=== PATIENT | male | born 1980 | race African-American/Black ===

== ENCOUNTER 2016-05-14 21:09 | Emergency (ER) | payer OTHER ==
[~2016-05-14] VITALS: Ht 177.8 cm; Wt 65.0 kg
[~2016-05-14 21:09] MED LIST: NAPR-571 PO; ROBA750T3 PO
[2016-05-14 21:38] VITALS: BP 158/78; PULSE 94; RESP 20; TEMP 98.3; O2SAT 97
[2016-05-14 23:08] LABS: AUTOMATED NEUTROPHIL # 3.8 TH/MM3 (1.8-7.7); BASOPHIL % 0.3 % (0.0-2.0); EOSINOPHIL % 0.3 % (0.0-4.0); HEMATOCRIT 45.4 % (39.0-51.0); HEMO FLAGS DIFF FINAL; LYMPH % 37.3 % (9.0-44.0); LYMPHOCYTE # 2.7 TH/MM3 (1.0-4.8); MEAN CELL VOLUME 85.7 FL (80.0-100.0); MEAN CORPUSCULAR HEMOGLOBIN 28.5 PG (27.0-34.0); MEAN CORPUSCULAR HGB CONC 33.3 % (32.0-36.0); MONO % 8.6 % (0.0-8.0); NEUT % 53.5 % (16.0-70.0); PLATELET COUNT 237 TH/MM3 (150-450); RED CELL DISTRIBUTION WIDTH 13.9 % (11.6-17.2); WHITE BLOOD COUNT 7.1 TH/MM3 (4.0-11.0)
[2016-05-14 23:09] VITALS: BP 144/99; PULSE 91; RESP 16; TEMP 99.2; O2SAT 100
[2016-05-14] MEDS ORDERED: NAPR250T PO (23:17)
[2016-05-14] MEDS ORDERED: ROBA750T PO (23:17)
[2016-05-14 23:21] LABS: AMPHETAMINE, URINE NEG (NEG); BARBITURATES, URINE NEG (NEG); COCAINE, URINE POS (NEG)
[2016-05-14 23:23] LABS: ANION GAP 11 MEQ/L (5-15)
[2016-05-14 23:30] LABS: ACETAMINOPHEN LESS THAN 2.0 MCG/ML (10.0-30.0); ALKALINE PHOSPHATASE 74 U/L (45-117); ALT (GPT) 40 U/L (12-78); AST (GOT) 38 U/L (15-37); BICARBONATE 25.1 MEQ/L (21.0-32.0); BLOOD UREA NITROGEN 14 MG/DL (7-18); CHLORIDE 102 MEQ/L (98-107); GLOMERULAR FILTRATION RATE 78 ML/MIN (>89); POTASSIUM 3.8 MEQ/L (3.5-5.1); SODIUM (NA) 138 MEQ/L (136-145); TOTAL BILIRUBIN ADULT 0.4 MG/DL (0.2-1.0)
--- NOTE | 2016-05-14 23:39 | PD ---
HPI Chief Complaint: Psychiatric Symptoms Time Seen by Provider: 21:49 Travel History International Travel<30 days: No Contact w/Intl Traveler<30days: No Traveled to known affect area: No History of Present Illness HPI 35yo M with PMH of depression and polysubstance abuse presents under [place] for suicidal ideation. Pt states he did not take any pills or have a solid plan. Pt denies any complaints or falls but admits to drug use. Denies any IVDA. No signs of trauma. PFSH Past Medical History Asthma: Yes Bipolar Disorder: Yes Diminished Hearing: No Schizophrenia: Yes Tetanus Vaccination: Unknown Influenza Vaccination: No Social History Alcohol Use: Yes (OCCASIONALLY ) Tobacco Use: Yes (1PPD) Substance Use: Yes (MARAJUANA) Allergies-Medications (Allergen,Severity, Reaction): Coded Allergies: No Known Allergies (Verified , 12/14/14) Reported Meds & Prescriptions Reported Meds & Active Scripts Active Reported Naproxen 250 Mg Tab 250 Mg PO TID Robaxin (Methocarbamol) 750 Mg Tab 750 Mg PO TID Review of Systems Except as stated in HPI: all other systems reviewed are Neg Physical Exam Narrative GENERAL: 35yo M not in distress. SKIN: Warm and dry. HEAD: Atraumatic. Normocephalic. EYES: Pupils equal and round. No scleral icterus. No injection or drainage. ENT: No nasal bleeding or discharge. Mucous membranes pink and moist. NECK: Trachea midline. No JVD. CARDIOVASCULAR: Regular rate and rhythm. No murmur appreciated. RESPIRATORY: No accessory muscle use. Clear to auscultation. Breath sounds equal bilaterally. GASTROINTESTINAL: Abdomen soft, non-tender, nondistended. No rebound tenderness or guarding. MUSCULOSKELETAL: No obvious deformities. No clubbing. No cyanosis. No edema. NEUROLOGICAL: Awake and alert. No obvious cranial nerve deficits. Motor grossly within normal limits. Normal speech. Data Data Last Documented VS Vital Signs Date Time Temp Pulse Resp B/P Pulse Ox O2 Delivery O2 Flow Rate FiO2 05/15/16 00:00 95 16 130/95 100 Room Air 05/14/16 23:09 99.2 Orders Complete Blood Count With Diff (05/14/16 22:32) Drug Screen, Random Urine (05/14/16 22:32) Psych Screen (05/14/16 22:32) Alcohol (Ethanol) (05/14/16 22:32) Tylenol (Acetaminophen) (05/14/16 22:32) Salicylates (Aspirin) (05/14/16 22:32) Comprehensive Metabolic Panel (05/14/16 22:32) Electrocardiogram (05/14/16 ) Labs Laboratory Tests Test 05/14/16 05/14/16 22:00 23:05 White Blood Count 7.1 TH/MM3 Red Blood Count 5.30 MIL/MM3 Hemoglobin 15.1 GM/DL Hematocrit 45.4 % Mean Corpuscular Volume 85.7 FL Mean Corpuscular Hemoglobin 28.5 PG Mean Corpuscular Hemoglobin 33.3 % Concent Red Cell Distribution Width 13.9 % Platelet Count 237 TH/MM3 Mean Platelet Volume 9.7 FL Neutrophils (%) (Auto) 53.5 % Lymphocytes (%) (Auto) 37.3 % Monocytes (%) (Auto) 8.6 % Eosinophils (%) (Auto) 0.3 % Basophils (%) (Auto) 0.3 % Neutrophils # (Auto) 3.8 TH/MM3 Lymphocytes # (Auto) 2.7 TH/MM3 Monocytes # (Auto) 0.6 TH/MM3 Eosinophils # (Auto) 0.0 TH/MM3 Basophils # (Auto) 0.0 TH/MM3 CBC Comment DIFF FINAL Differential Comment Sodium Level 138 MEQ/L Potassium Level 3.8 MEQ/L Chloride Level 102 MEQ/L Carbon Dioxide Level 25.1 MEQ/L Anion Gap 11 MEQ/L Blood Urea Nitrogen 14 MG/DL Creatinine 1.26 MG/DL Estimat Glomerular Filtration 78 ML/MIN Rate Random Glucose 81 MG/DL Calcium Level 8.8 MG/DL Total Bilirubin 0.4 MG/DL Aspartate Amino Transf 38 U/L (AST/SGOT) Alanine Aminotransferase 40 U/L (ALT/SGPT) Alkaline Phosphatase 74 U/L Total Protein 8.7 GM/DL Albumin 4.6 GM/DL Salicylates Level 4.1 MG/DL Acetaminophen Level LESS THAN 2.0 MCG/ML Ethyl Alcohol Level 160 MG/DL Urine Opiates Screen NEG Urine Barbiturates Screen NEG Urine Amphetamines Screen NEG Urine Benzodiazepines Screen NEG Urine Cocaine Screen POS Urine Cannabinoids Screen POS MDM Medical Decision Making Medical Screen Exam Complete: Yes Emergency Medical Condition: Yes Interpretation(s) EKG: NSR 77bpm. Early repolarization. Normal axis. QTc 397ms. Narrow QRS. Differential Diagnosis Depression vs. drug induced mood disorder Narrative Course 35yo M with depression here with suicidal ideation. Labs reviewed, no leukocytosis. Mild AST elevation. Utox positive for cocaine, cannabinoids. Blood alcohol 160. Salicylate 4.1. Pt is medically clear for psych evaluation. Diagnosis Primary Impression: Suicidal ideation Ernestina Lorenzo DO May 14, 2016 23:39
[2016-05-15] VITALS: BP 130/95; PULSE 95; RESP 16; O2SAT 100
[2016-05-15 05:19] VITALS: BP 120/61; PULSE 79; RESP 18
[2016-05-15 11:57] VITALS: BP 122/69; PULSE 63; RESP 18; O2SAT 98
--- NOTE | 2016-05-15 14:59 | PD.CONS ---
Provisional Diagnosis Admission Date [place]. 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 Today a psychiatric evaluation patient is clinically sober, patient is states that he doesn't understand how he could be so drunk and intoxicated to the point that he became suicidal. He says that he doesn't know what he was doing or he was saying. At this moment the patient denies depressive symptoms, denies anxiety, denies perceptual disturbances, denies merritt, denies psychosis. He denies suicidal or homicidal ideation. He denies visual and auditory hallucinations.. Patient is fully oriented 3, coherent, logical, no paranoia or delusion observed. Patient reports the use of alcohol, cocaine and marijuana just occasionally. Review of Systems Constitutional: DENIES: Diaphoretic episodes, Fatigue, Fever, Weight gain, Weight loss, Chills, Dizziness, Change in appetite, Night Sweats Endocrine: DENIES: Heat/cold intolerance, Polydipsia, Polyuria, Polyphagia Eyes: DENIES: Blurred vision, Diplopia, Eye inflammation, Eye pain, Vision loss , Photosensitivity, Double Vision Ears, nose, mouth, throat: DENIES: Tinnitus, Hearing loss, Vertigo, Nasal discharge, Oral lesions, Throat pain, Hoarseness, Ear Pain, Running Nose, Epistaxis, Sinus Pain, Toothache, Odynophagia Respiratory: DENIES: Apneas, Cough, Snoring, Wheezing, Hemoptysis, Sputum production, Shortness of breath Cardiovascular: DENIES: Chest pain, Palpitations, Syncope, Dyspnea on Exertion , PND, Lower Extremity Edema, Orthopnea, Claudication Gastrointestinal: DENIES: Abdominal pain, Black stools, Bloody stools, Constipation, Diarrhea, Nausea, Vomiting, Difficulty Swallowing, Anorexia Musculoskeletal: DENIES: Joint pain, Muscle aches, Stiffness, Joint Swelling, Back pain, Neck pain Integumentary: DENIES: Abnormal pigmentation, Nail changes, Pruritus, Rash Hematologic/lymphatic: DENIES: Bruising, Lymphadenopathy Immunologic/allergic: DENIES: Eczema, Urticaria Neurologic: DENIES: Abnormal gait, Headache, Localized weakness, Paresthesias, Seizures, Speech Problems, Tremor, Poor Balance Psychiatric: DENIES: Anxiety, Confusion, Mood changes, Depression, Hallucinations, Agitation, Suicidal Ideation, Homicidal Ideation, Delusions Past Family Social History Coded Allergies: No Known Allergies (Verified , 12/14/14) Reported Medications Naproxen 250 Mg [id number] Mg PO TID #60 TAB Ref 0 05/14/16 Methocarbamol (Robaxin)750 Mg [id number] Mg PO TID Ref 0 05/14/16 Physical Exam Vital Signs Vital Signs Date Time Temp Pulse Resp B/P Pulse Ox O2 Delivery O2 Flow Rate FiO2 05/15/16 11:57 63 18 122/69 98 Room Air 05/14/16 23:09 99.2 Mental Status Examination Speech: Unremarkable Orientation: x3 Memory: Unremarkable Thought Process: Logical Thought Content: Unremarkable Hallucination Type: None Attention and Concentration: Good Suicidal Ideation: No Previous Suicide Attempts: No Homicidal Ideation: No Previous Homicide Attempts: No Judgement: WNL Affect: Good Mood: Appropriate Assessment & Plan Problem List: (1) Substance induced mood disorder Assessment & Plan: At the moment of this evaluation the patient does not report any symptoms of depression, anxiety, merritt or psychosis. Patient denies suicidal or homicidal ideation. Patient is now clinically sober, reports good mood, he is future oriented, logical and coherent. Yesterday's suicidal statement and erratic behavior could be secondary to alcohol, cocaine and cannabis intoxication. Patient does not meet criteria for psychiatric admission at this moment. Support, motivation psycho education provided. He will be discharged back to community. ICD Code: F19.94 Assessment & Plan Estimated LOS: Enrique Samano MD May 15, 2016 14:59
[2016-05-15 15:12] VITALS: BP 122/69; PULSE 63; RESP 18; O2SAT 98
--- NOTE | 2016-05-15 23:45 | EKG ---
Date Performed: 05/15/2016 Time Performed: 01:17:07 PTAGE: 35 years EKG: Sinus rhythm ST ELEVATION, PROBABLY EARLY REPOLARIZATION BORDERLINE ECG PREVIOUS TRACING : 02/23/2013 13.47 DOCTOR: Alex Banuelos Interpretating Date/Time 05/15/2016 23:41:23
== END 2016-05-15 18:53 | disposition home or self-care (01) ==
LOC: NEDAMB 21:09 → NEPJ 05-15 18:53
DX: F19.14 Other psychoactive substance abuse with psychoactive substance-induced mood disorder (principal); R94.31 Abnormal electrocardiogram [ECG] [EKG]; J45.909 Unspecified asthma, uncomplicated; F31.9 Bipolar disorder, unspecified; F20.9 Schizophrenia, unspecified; F14.10 Cocaine abuse, uncomplicated; F10.10 Alcohol abuse, uncomplicated; F13.10 Sedative, hypnotic or anxiolytic abuse, uncomplicated; F17.210 Nicotine dependence, cigarettes, uncomplicated
CPT/HCPCS: 80053; 80307; 80320; 80329; 85025; 93005; G0480

== ENCOUNTER 2016-10-01 13:14 | Inpatient (IN) | payer OTHER ==
[~2016-10-01] VITALS: Ht 175.3 cm; Wt 67.5 kg
[2016-10-01] VITALS (10 sets, daily range): BP systolic 100–170; BP diastolic 55–93; PULSE 57–105; RESP 14–24; TEMP 97.3–98.7; O2SAT 96–99
[~2016-10-01 13:14] MED LIST changes: -NAPR-571 PO; +NAPR250T PO; +ROBA750T PO; -ROBA750T3 PO
--- NOTE | 2016-10-01 13:19 | PD ---
HPI Chief Complaint: hanging Time Seen by Provider: 13:19 Travel History International Travel<30 days: No Contact w/Intl Traveler<30days: No Traveled to known affect area: No History of Present Illness HPI 35-year-old male was brought in from the emergency room with history of suicide attempt by hanging himself from the ceiling with a rope. His and child found him soon after the attempt. As per the police and the paramedics he couldn't have been hanging for more than a minute. Police was called and they cut him loose. He immediately started to get agitated and combative. He ran out into the street and that's when paramedics arrived and together with the police but in the ambulance. As per the paramedics he was constantly chanting biblical verses in the ambulance on his right here and was trying to grab anything he could find in the back of the ambulance and put it in his mouth. He received 4 mg of Ativan on route in an attempt to calm him down. Currently patient is uncommunicative given his psychotic self. The police justice told me that he has a warrant to be arrested. He is hypertensive and tachycardic. 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 [facility] Past Medical History Narrative Medical List of his past medical, surgical, social and family history is reviewed from the nursing note. Asthma: Yes Bipolar Disorder: Yes Diminished Hearing: No Schizophrenia: Yes Social History Alcohol Use: Yes (OCCASIONALLY ) Tobacco Use: Yes (1PPD) Substance Use: Yes (MARAJUANA, ALCOHOL, COCAINE) Allergies-Medications (Allergen,Severity, Reaction): Coded Allergies: No Known Allergies (Verified , 10/01/16) Comments No known drug allergies. Reported Meds & Prescriptions Reported Meds & Active Scripts Active Narrative Medication List of his home medications reviewed from the nursing note. Review of Systems Except as stated in HPI: all other systems reviewed are Neg Physical Exam Narrative GENERAL: Awake, alert, combative, aggressive, unable to communicate with him SKIN: Focused skin assessment warm/dry. HEAD: Atraumatic. Normocephalic. EYES: Pupils equal and round. No scleral icterus. No injection or drainage. ENT: No nasal bleeding or discharge. Mucous membranes pink and moist. NECK: Trachea midline. No JVD. CARDIOVASCULAR: Regular rate and rhythm. No murmur appreciated. RESPIRATORY: No accessory muscle use. Clear to auscultation. Breath sounds equal bilaterally. GASTROINTESTINAL: Abdomen soft, non-tender, nondistended. Hepatic and splenic margins not palpable. MUSCULOSKELETAL: No obvious deformities. No clubbing. No cyanosis. No edema. NEUROLOGICAL: Awake and alert. No obvious cranial nerve deficits. Motor grossly within normal limits. Normal speech. PSYCHIATRIC: Combative, aggressive, poor insight and judgment Data Data Last Documented VS Vital Signs Date Time Temp Pulse Resp B/P Pulse Ox O2 Delivery O2 Flow Rate FiO2 10/01/16 16:00 80 14 168/93 97 Room Air 10/01/16 13:20 98.7 Orders Complete Blood Count With Diff (10/01/16 13:20) Comprehensive Metabolic Panel (10/01/16 13:20) Haloperidol Inj (Haldol Inj) (10/01/16 13:30) Lorazepam Inj (Ativan Inj) (10/01/16 13:30) Drug Screen, Random Urine (10/01/16 13:20) Diphenhydramine Inj (Benadryl Inj) (10/01/16 13:30) Restraints Violent (10/01/16 13:21) Salicylates (Aspirin) (10/01/16 13:27) Tylenol (Acetaminophen) (10/01/16 13:27) Special Diet Instructions (10/01/16 14:21) Psychiatric Precautions-Hbs (10/01/16 14:21) Lactic Acid (10/01/16 14:35) Arterial Blood Gas (Abg) (10/01/16 ) Alcohol (Ethanol) (10/01/16 14:35) Creatine Kinase (Cpk) (10/01/16 14:35) Sodium Chlor 0.9% 1000 Ml Inj (Ns 1000 M (10/01/16 15:00) Sodium Chlor 0.9% 1000 Ml Inj (Ns 1000 M (10/01/16 15:00) Ct Brain W/O Iv Contrast(Rout) (10/01/16 ) Ct Cerv Spine W/O Contrast (10/01/16 ) CKMB (10/01/16 13:50) CKMB% (10/01/16 13:50) Sodium Chlor 0.9% 1000 Ml Inj (Ns 1000 M (10/01/16 16:00) Sodium Bicarbonate 8.4% Inj (Sodium Bica (10/01/16 16:00) Admit Order (Ed Use Only) (10/01/16 15:59) Admit To Inpatient (10/01/16 ) Code Status (10/01/16 15:56) Vital Signs (Adult) POLLY.Q1H (10/01/16 15:56) Activity Bed Rest (10/01/16 15:56) ^ Elevate Head Of Bed (10/01/16 15:56) Activity Oob With Assistance (10/01/16 15:56) Neuro Checks . ORDERED (10/01/16 15:56) Pantoprazole Inj (Protonix Inj) (10/01/16 16:00) Albuterol-Ipratropium Neb (Duoneb Neb) (10/01/16 16:00) Ipratropium Neb (Atrovent Neb) (10/01/16 16:00) Complete Blood Count With Diff (10/02/16 04:00) Comprehensive Metabolic Panel (10/02/16 04:00) Magnesium (Mg) (10/02/16 04:00) Phosphorus (Po4) (10/02/16 04:00) Ladle Puller / Telemetry POLLY.Q8H (10/01/16 15:56) Scd Bilateral/Knee High POLLY.BID (10/01/16 15:56) ^ Initiate Protocol (10/01/16 15:56) ^ Instruction (10/01/16 15:56) [facility] (10/01/16 16:00) Chlorhexidine 2% Cloth (Chlorhexidine 2% (10/02/16 04:00) Chlorhexidine 2% Cloth (Chlorhexidine 2% (10/01/16 16:00) Mrsa Pcr Surveillance (10/01/16 15:56) Inpatient Certification (10/01/16 ) Consult Psychiatry (10/01/16 ) Sodium Bicarbonate 8.4% Inj (Sodium Bica (10/01/16 16:00) Dext 5%-Nacl 0.9% 1000 Ml Inj (D5w-Ns 10 (10/01/16 16:00) Lactic Acid (10/01/16 19:00) Basic Metabolic Panel (Bmp) (10/01/16 19:00) Labs Laboratory Tests Test 5/10/01/16 10/01/16 13:50 14:45 15:36 White Blood Count 6.0 TH/MM3 Red Blood Count 4.94 MIL/MM3 Hemoglobin 14.5 GM/DL Hematocrit 42.4 % Mean Corpuscular Volume 85.9 FL Mean Corpuscular Hemoglobin 29.3 PG Mean Corpuscular Hemoglobin 34.1 % Concent Red Cell Distribution Width 14.0 % Platelet Count 198 TH/MM3 Mean Platelet Volume 9.2 FL Neutrophils (%) (Auto) 67.2 % Lymphocytes (%) (Auto) 23.8 % Monocytes (%) (Auto) 8.5 % Eosinophils (%) (Auto) 0.1 % Basophils (%) (Auto) 0.4 % Neutrophils # (Auto) 4.0 TH/MM3 Lymphocytes # (Auto) 1.4 TH/MM3 Monocytes # (Auto) 0.5 TH/MM3 Eosinophils # (Auto) 0.0 TH/MM3 Basophils # (Auto) 0.0 TH/MM3 CBC Comment DIFF FINAL Differential Comment Sodium Level 137 MEQ/L Potassium Level 3.5 MEQ/L Chloride Level 101 MEQ/L Carbon Dioxide Level 14.7 MEQ/L Anion Gap 21 MEQ/L Blood Urea Nitrogen 9 MG/DL Creatinine 1.20 MG/DL Estimat Glomerular Filtration 83 ML/MIN Rate Random Glucose 79 MG/DL Calcium Level 9.2 MG/DL Total Bilirubin 0.3 MG/DL Aspartate Amino Transf 26 U/L (AST/SGOT) Alanine Aminotransferase 27 U/L (ALT/SGPT) Alkaline Phosphatase 63 U/L Total Creatine Kinase 482 U/L Creatine Kinase MB 1.4 NG/ML Creatine Kinase MB % 0.3 % Total Protein 7.5 GM/DL Albumin 4.2 GM/DL Salicylates Level 4.9 MG/DL Acetaminophen Level LESS THAN 2.0 MCG/ML Ethyl Alcohol Level 53 MG/DL Lactic Acid Level 6.1 mmol/L Blood Gas Puncture Site LT BRACHIAL Blood Gas Patient Temperature 98.6 Blood Gas HCO3 18 mmol/L Blood Gas Base Excess -6.2 mmol/L Blood Gas Oxygen Saturation 93 % Arterial Blood pH 7.35 Arterial Blood Partial 35 mmHg Pressure CO2 Arterial Blood Partial 102 mmHG Pressure O2 Arterial Blood Oxygen Content 17.6 Vol % Arterial Blood 4.2 % Carboxyhemoglobin Arterial Blood Methemoglobin 0.7 % Blood Gas Hemoglobin 13.4 G/DL Blood Gas Inspired Oxygen 21 % MDM Medical Decision Making Medical Screen Exam Complete: Yes Emergency Medical Condition: Yes Medical Record Reviewed: Yes Differential Diagnosis Suicide attempt, attempted hanging Narrative Course 2:07 PM I ordered Haldol, Ativan and Benadryl IM in order to chemically restrain him. Awaiting for the blood test result to medically clear him. Once patient is medically cleared he will go back with the police to the custody. 3:02 PM blood test results are slowly coming back. Patient's bicarb is low and anion gap is high. I added lactic acid which is pending. CBC is slightly elevated which would be explained by his aggressive and combative behavior at required physical restraint. I have ordered 2 L of IV fluid bolus which she is getting. Alcohol level is slightly high. I've ordered a CT scan of his head and neck as well. CT scan pending. 3:[address] scan of the head is negative. Patient has significant lactic acidosis. I discussed the case with the alley worker who has accepted the case and wants a third liter of IV fluid bolus along with 2 ampules of bicarbonate to be given to the patient. Critical Care Narrative Aggregate critical care time was 60 minutes. Time to perform other separately billable procedures was not included in the critical care time. My time did not include minutes spent treating any other patients simultaneously or on activities that did not directly contribute to the patient's treatment. The services I provided to this patient were to treat and/or prevent clinically significant deterioration that could result in: Psychosis, attempted hanging, lactic acidosis, metabolic acidosis I provided critical care services requiring my management, as noted below: Chart data review, documentation time, medication orders and management, vital sign assessments/reviewing monitor data, ordering and reviewing lab tests, ordering and interpreting/reviewing x-rays and diagnostic studies, care of the patient and discussion of the patient with the admitting physicians. Procedures EKG Prior to Arrival: No Physician Communication Physician Communication Dr. 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
[2016-10-01] MEDS ORDERED: HALOPERIDOL LACTATE 5 MG/ML AMP IM ONE (13:30)
[2016-10-01] MEDS ORDERED: LORazepam 2 MG/ML VIAL IM ONE (13:30)
[2016-10-01] MEDS ORDERED: diphenhydrAMINE HCL 50 MG/ML VIAL IM ONE (13:30)
[2016-10-01 14:06] LABS: BASOPHIL % 0.4 % (0.0-2.0); EOSINOPHIL % 0.1 % (0.0-4.0); HEMATOCRIT 42.4 % (39.0-51.0); HEMO FLAGS DIFF FINAL; LYMPH % 23.8 % (9.0-44.0); LYMPHOCYTE # 1.4 TH/MM3 (1.0-4.8); MEAN CELL VOLUME 85.9 FL (80.0-100.0); MEAN CORPUSCULAR HEMOGLOBIN 29.3 PG (27.0-34.0); MEAN CORPUSCULAR HGB CONC 34.1 % (32.0-36.0); MONO % 8.5 % (0.0-8.0); NEUT % 67.2 % (16.0-70.0); PLATELET COUNT 198 TH/MM3 (150-450); RED BLOOD COUNT 4.94 MIL/MM3 (4.50-5.90)
[2016-10-01 14:26] LABS: ALT (GPT) 27 U/L (12-78); ANION GAP 21 MEQ/L (5-15); AST (GOT) 26 U/L (15-37); BICARBONATE 14.7 MEQ/L (21.0-32.0); BLOOD UREA NITROGEN 9 MG/DL (7-18); CHLORIDE 101 MEQ/L (98-107); GLOMERULAR FILTRATION RATE 83 ML/MIN (>89); POTASSIUM 3.5 MEQ/L (3.5-5.1); SODIUM (NA) 137 MEQ/L (136-145)
[2016-10-01 14:28] LABS: ALKALINE PHOSPHATASE 63 U/L (45-117); TOTAL BILIRUBIN ADULT 0.3 MG/DL (0.2-1.0)
[2016-10-01] MEDS ORDERED: SODIUM CHLOR 0.9% 1000 ML INJ 1,000 ML IV ONE ×3 (15:00→16:00)
[2016-10-01 15:18] LABS: CKMB 1.4 NG/ML (0.5-3.6)
[2016-10-01 15:46] LABS: BLOOD GAS BASE EXCESS -6.2 mmol/L (-2-2); BLOOD GAS CARBOXYHEMOGLOBIN 4.2 % (0-4); BLOOD GAS HCO3 18 mmol/L (22-26); BLOOD GAS METHEMOGLOBIN 0.7 % (0-2); BLOOD GAS O2 HGB SATURATION 93 % (90-100); BLOOD GAS OXYGEN CONTENT 17.6 Vol % (12.0-20.0); BLOOD GAS PCO2 35 mmHg (38-42); BLOOD GAS PO2 102 mmHG (61-120); BLOOD GAS TOTAL HGB 13.4 G/DL (12.0-16.0); TEMP CORR TO 98.6
[2016-10-01 15:47] LABS: CRITICAL VALUE NO; DRAW SITE LT BRACHIAL; FIO2 21 %; NUMBER OF ARTERIAL PUNCTURES 1; STAT YES; ULNAR PULSE PRESENT
--- NOTE | 2016-10-01 15:55 | RADRPT ---
EXAM DATE/TIME: 10/01/2016 15:44 [facility] COMPARISON: No previous studies available for comparison. INDICATIONS : Attempted hanging. RADIATION DOSE: 56.35 CTDIvol (mGy) MEDICAL HISTORY : Non-responsive. SURGICAL HISTORY : Non-responsive. ENCOUNTER: Initial ACUITY: 1 day PAIN SCALE: Non-responsive LOCATION: cranial TECHNIQUE: Multiple contiguous axial images were obtained of the head. Using automated exposure control and adj ustment of the mA and/or kV according to patient size, radiation dose was kept as low as reasonably a chievable to obtain optimal diagnostic quality images. FINDINGS: CEREBRUM: The ventricles are normal for age. No evidence of midline shift, mass lesion, hemorrhage or acute in farction. No extra-axial fluid collections are seen. POSTERIOR FOSSA: The cerebellum and brainstem are intact. The 4th ventricle is midline. The cerebellopontine angle i s unremarkable. EXTRACRANIAL: The visualized portion of the orbits is intact. SKULL: The calvaria is intact. No evidence of skull fracture. CONCLUSION: Negative trauma study. Deandre Lorenzo MD on October 01, 2016 at 15:52 Board Certified Radiologist. This report was verified electronically.
[2016-10-01] MEDS ORDERED: CHLORHEXIDINE GLUCONATE 2 % 1 PACK (2 CLOTHS) TOP PRN (16:00)
[2016-10-01] MEDS ORDERED: MISCELLANEOUS NURSING INFORMATION XX SCH (16:00)
[2016-10-01] MEDS ORDERED: RESP: IPRATROPIUM 0.5 MG/2.5 ML NEB INH PRN (16:00)
[2016-10-01] MEDS ORDERED: SODIUM BICARBONATE 8.4% INJ 50 MEQ/50 ML SYR IV PUSH ONE ×2 (16:00)
--- NOTE | 2016-10-01 16:14 | RADRPT ---
EXAM DATE/TIME: 10/01/2016 15:46 [facility] COMPARISON: No previous studies available for comparison. INDICATIONS : Attempted hanging. RADIATION DOSE: 34.14 CTDIvol (mGy) MEDICAL HISTORY : Non-responsive. SURGICAL HISTORY : Non-responsive. ENCOUNTER: Initial ACUITY: 1 day PAIN SCALE: Non-responsive LOCATION: neck TECHNIQUE: Volumetric scanning of the cervical spine was performed. Multiplanar reconstructions in the sagittal, coronal and oblique axial planes were performed. Using automated exposure control and adjustment o f the mA and/or kV according to patient size, radiation dose was kept as low as reasonably achievable to obtain optimal diagnostic quality images. FINDINGS: There is normal sagittal spine alignment of the cervical spine. No anterolisthesis or retrolisthesis is present. The atlantoaxial relationship is within normal limits. There is no prevertebral soft tiss ue swelling present. No fracture or dislocation is identified. No disc herniation is visualized in th e upper cervical spine. There is incomplete fusion of the posterior arch of C1 in the midline. Small blebs are present at the lung apices. Otherwise, the visualized portions of the posterior fossa , paraspinous soft tissues, and upper lung zones demonstrate no acute abnormality. CONCLUSION: No acute cervical spine abnormality is identified. Len Tabor MD on October 01, 2016 at 16:08 Board Certified Radiologist. This report was verified electronically.
[2016-10-01] MEDS ORDERED: LORazepam 2 MG/ML VIAL IV PUSH PRN (16:15)
[2016-10-01] MEDS ORDERED: MULTIVITAMIN TAB PO SCH (16:15)
[2016-10-01] MEDS: MULTIVITAMIN TAB PO SCH (16:19)
[2016-10-01] MEDS: FOLIC ACID 1 MG TAB PO SCH (16:20)
[2016-10-01] MEDS: DEXT 5%-NACL 0.9% 1000 ML INJ 1,000 ML IV SCH (16:21)
[2016-10-01] MEDS: RESP: ALBUTEROL 2.5 MG/IPRATROPIUM 0.5 MG NEB (SCH) INH ×2 (16:22→21:12)
[2016-10-01 16:58] LABS: AMPHETAMINE, URINE NEG (NEG); BARBITURATES, URINE NEG (NEG); COCAINE, URINE NEG (NEG)
[2016-10-01] MEDS ORDERED: DEXTROSE 50% IN WATER 50 ML VIAL(D50) IV PRN (17:00)
[2016-10-01] MEDS ORDERED: GLUCAGON 1 MG/ML VIAL OTHER PRN (17:00)
--- NOTE | 2016-10-01 18:11 | MH ---
cc: DEE MERCEDES M.D. DATE OF ADMISSION 10/01/2016 HISTORY OF THE PRESENT ILLNESS The patient is a 35-year-old male with past medical history of bronchial asthma, bipolar disorder who presented to [facility] ED with a history of suicide attempt by hanging himself from the ceiling with a rope. His and child found him soon after the attempt and upon arrival of the police and paramedics, they cut him loose and he immediately started to get agitated and combative. He was trying to grab anything he could find in the ambulance and put it in his mouth. The patient received Ativan 4 mg IV en route. The patient has a warrant to be arrested. On arrival to the ER he was hypertensive and tachycardiac. 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 The CT scan of the brain was obtained which showed no acute intracranial abnormality. In addition, the patient has cervical spine CT which was unremarkable. His laboratory data significant for anion gap metabolic acidosis and lactic acidemia with lactic acid level of 6.1. His renal function was normal. Alcohol level measured at 53. A urine drug screen is pending. In the ER the patient received 3 liters of crystalloids total and about to receive 2 amps of sodium bicarb. ABG was performed on room air which showed a pH of 7.35, CO2 35, pAO2 102, bicarb 18, sats 93%. History was obtained from reviewing medical records. PAST MEDICAL HISTORY Significant for: 1. Bronchial asthma. 2. Bipolar disorder. 3. Schizophrenia. PAST SURGICAL HISTORY Unknown. ALLERGIES NO KNOWN DRUG ALLERGIES. SOCIAL HISTORY Smoker, drinker and has history of polysubstance abuse. MEDICATIONS Reported. . REVIEW OF SYSTEMS As per HPI. The rest of the review of systems is limited. PHYSICAL EXAMINATION GENERAL: A 35-year-old male lying in bed in no acute respiratory distress. VITAL SIGNS: Afebrile, temperature 98.7, pulse 105, respiratory rate 24. Blood pressure 166/88, saturation 97%. HEENT: Atraumatic, normocephalic. Pupils equal, round, reactive to light and accommodation. Extraocular muscles intact. Conjunctivae pink. Nonicteric sclerae. Oral mucosa within normal. NECK: Supple. No JVD, adenopathy or thyromegaly. Trachea midline. CARDIOVASCULAR: Tachycardiac, normal S1-S2. No murmurs, rubs or gallops noted. LUNGS: Pulmonary exam bilateral equal air entry. No rales or wheezing. ABDOMEN: Soft, nontender, no distension. Positive bowel sounds. EXTREMITIES: No cyanosis, clubbing or edema. NEUROLOGIC: No focal sensory deficit. LABORATORY DATA Sodium 137, potassium 3.5, chloride 101, CO2 14.7, BUN 9, creatinine 1.20, glucose 79, lactic acid 6.1, AST 26, ALT 27, total bilirubin 0.3. Total CK 482. Albumin 4.2. WBC 6, hemoglobin 14.5, hematocrit 42, platelet count 198. Alcohol level 53. IMAGING Radiographic studies, CT scan of brain and CT cervical spine showed no acute abnormalities. IMPRESSION 1. Psychosis. 2. Status post a suicide attempt. 3. EtOH intoxication. 4. Anion gap metabolic acidosis. 5. Lactic acidemia. 6. Elevated CKs. 7. History of bipolar disorder. 8. Bronchial asthma. RECOMMENDATIONS 1. Monitor neuro status closely and place on Ativan 1 mg IV q. 4 hours p.r.n. for agitation. Monitor for signs of DTs. 2. We will check a urine drug screen and placed on thiamine, multivitamins and folic acid. A CT scan of the brain in the ER negative for acute intracranial abnormalities. 3. Oxygen p.r.n. to maintain sats above 92%. 4. Bronchodilators on a p.r.n. basis and aspiration precautions. 5. Monitor heart rate and blood pressure closely and maintain MAP greater than 65 mmHg. The patient received 3 liters of crystalloid in the ED. Continue with serial lactic acid monitoring. 6. Maintenance fluids in the form of D5 NS at 75 an hour. 7. Monitor renal function Is and Os and electrolyte replacement as needed. 8. Continue with IV fluids as stated above. In addition the patient will receive 2 ampules of sodium bicarb. Will repeat the BMP and lactic acid level. 9. Monitor for signs of infections which include fever and WBC. Check urinalysis with culture if indicated and will panculture if spikes a fever. 10. Consult psych service. 11. Sliding scale insulin with Accu-Cheks if needed for glycemic control. 12. Monitor CBC. 13. GI prophylaxis with Protonix 40 mg IV daily and DVT prophylaxis with SCDs and heparin subcu. Further recommendations will be based on hospital course. MD FRANK Gilman/MARIPOSA /4:49 PM /5:32 PM
[2016-10-01 20:32] LABS: BICARBONATE 28.6 MEQ/L (21.0-32.0); POTASSIUM 3.5 MEQ/L (3.5-5.1)
[2016-10-01] MEDS: HEPARIN SODIUM - SQ 10,000 UNITS/ML VIAL SQ SCH (21:05)
[2016-10-02] VITALS (20 sets, daily range): BP systolic 113–169; BP diastolic 65–94; PULSE 51–101; RESP 17–34; TEMP 97.8–99; O2SAT 97–100
[2016-10-02] MEDS: RESP: ALBUTEROL 2.5 MG/IPRATROPIUM 0.5 MG NEB (SCH) INH ×4 (02:45→20:53)
[2016-10-02] MEDS: CHLORHEXIDINE GLUCONATE 2 % 1 PACK (2 CLOTHS) TOP SCH (04:00)
[2016-10-02 04:35] LABS: AUTOMATED NEUTROPHIL # 2.7 TH/MM3 (1.8-7.7); BASOPHIL % 0.3 % (0.0-2.0); EOSINOPHIL # 0.1 TH/MM3 (0-0.4); EOSINOPHIL % 1.3 % (0.0-4.0); HEMATOCRIT 38.9 % (39.0-51.0); HEMO FLAGS DIFF FINAL; LYMPH % 34.8 % (9.0-44.0); LYMPHOCYTE # 1.8 TH/MM3 (1.0-4.8); MEAN CELL VOLUME 84.8 FL (80.0-100.0); MEAN CORPUSCULAR HEMOGLOBIN 28.8 PG (27.0-34.0); MONO % 11.4 % (0.0-8.0); NEUT % 52.2 % (16.0-70.0); PLATELET COUNT 168 TH/MM3 (150-450); RED BLOOD COUNT 4.59 MIL/MM3 (4.50-5.90); RED CELL DISTRIBUTION WIDTH 13.9 % (11.6-17.2); WHITE BLOOD COUNT 5.2 TH/MM3 (4.0-11.0)
[2016-10-02 04:54] LABS: ALT (GPT) 31 U/L (12-78); ANION GAP 7 MEQ/L (5-15); AST (GOT) 53 U/L (15-37); BICARBONATE 26.9 MEQ/L (21.0-32.0); BLOOD UREA NITROGEN 7 MG/DL (7-18); CHLORIDE 110 MEQ/L (98-107); GLOMERULAR FILTRATION RATE 117 ML/MIN (>89); MAGNESIUM 2.2 MG/DL (1.5-2.5); POTASSIUM 3.6 MEQ/L (3.5-5.1); SODIUM (NA) 144 MEQ/L (136-145); TOTAL BILIRUBIN ADULT 0.4 MG/DL (0.2-1.0)
[2016-10-02 04:55] LABS: ALKALINE PHOSPHATASE 50 U/L (45-117)
[2016-10-02] MEDS: DEXT 5%-NACL 0.9% 1000 ML INJ 1,000 ML IV SCH ×2 (05:20→18:40)
[2016-10-02] MEDS: THIAMINE HCL 100 MG TAB PO SCH (08:42)
[2016-10-02] MEDS: FOLIC ACID 1 MG TAB PO SCH (08:42)
[2016-10-02] MEDS: MULTIVITAMIN TAB PO SCH (08:43)
[2016-10-02] MEDS: PANTOPRAZOLE SODIUM 40 MG VIAL IV SCH (08:43)
[2016-10-02] MEDS: HEPARIN SODIUM - SQ 10,000 UNITS/ML VIAL SQ SCH ×2 (08:43→20:17)
--- NOTE | 2016-10-02 10:01 | HHI.CCPN ---
Subjective Remarks/Hospital Course The patient is a 35-year-old male with past medical history of bronchial asthma , bipolar disorder who presented to [facility] ED with a history of suicide attempt by hanging himself from the ceiling with a rope. His and child found him soon after the attempt and upon arrival of the police and paramedics, they cut him loose and he immediately started to get agitated and combative. He was trying to grab anything he could find in the ambulance and put it in his mouth. The patient received Ativan 4 mg IV en route. The patient has a warrant to be arrested. On arrival to the ER he was hypertensive and tachycardiac. 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 The CT scan of the brain was obtained which showed no acute intracranial abnormality. In addition, the patient has cervical spine CT which was unremarkable. His laboratory data significant for anion gap metabolic acidosis and lactic acidemia with lactic acid level of 6.1. His renal function was normal. Alcohol level measured at 53. A urine drug screen is pending. In the ER the patient received 3 liters of crystalloids total and about to receive 2 amps of sodium bicarb. ABG was performed on room air which showed a pH of 7.35, CO2 35, pAO2 102, bicarb 18, sats 93%. 10/02 No events overnight. Patient is awake, alert and on room air oxygen. Afebrile. Objective Vital Signs Date Time Temp Pulse Resp B/P Pulse Ox O2 Delivery O2 Flow Rate FiO2 10/02/16 06:00 56 10/02/16 04:00 98.7 19 113/69 97 10/01/16 17:00 Room Air Intake and Output 10/01/16 10/01/16 10/01/16 07:59 15:59 23:59 Intake Total 373 ml Output Total 0 ml Balance 373 ml Result Diagram: 10/02/16 0408 10/02/16 0408 Other Results Laboratory Tests Test 10/01/16 10/01/16 10/01/16 10/01/16 13:50 14:45 15:36 16:30 White Blood Count 6.0 TH/MM3 Red Blood Count 4.94 MIL/MM3 Hemoglobin 14.5 GM/DL Hematocrit 42.4 % Mean Corpuscular Volume 85.9 FL Mean Corpuscular Hemoglobin 29.3 PG Mean Corpuscular Hemoglobin 34.1 % Concent Red Cell Distribution Width 14.0 % Platelet Count 198 TH/MM3 Mean Platelet Volume 9.2 FL Neutrophils (%) (Auto) 67.2 % Lymphocytes (%) (Auto) 23.8 % Monocytes (%) (Auto) 8.5 % Eosinophils (%) (Auto) 0.1 % Basophils (%) (Auto) 0.4 % Neutrophils # (Auto) 4.0 TH/MM3 Lymphocytes # (Auto) 1.4 TH/MM3 Monocytes # (Auto) 0.5 TH/MM3 Eosinophils # (Auto) 0.0 TH/MM3 Basophils # (Auto) 0.0 TH/MM3 CBC Comment DIFF FINAL Differential Comment Sodium Level 137 MEQ/L Potassium Level 3.5 MEQ/L Chloride Level 101 MEQ/L Carbon Dioxide Level 14.7 MEQ/L Anion Gap 21 MEQ/L Blood Urea Nitrogen 9 MG/DL Creatinine 1.20 MG/DL Estimat Glomerular Filtration 83 ML/MIN Rate Random Glucose 79 MG/DL Calcium Level 9.2 MG/DL Total Bilirubin 0.3 MG/DL Aspartate Amino Transf 26 U/L (AST/SGOT) Alanine Aminotransferase 27 U/L (ALT/SGPT) Alkaline Phosphatase 63 U/L Total Creatine Kinase 482 U/L Creatine Kinase MB 1.4 NG/ML Creatine Kinase MB % 0.3 % Total Protein 7.5 GM/DL Albumin 4.2 GM/DL Salicylates Level 4.9 MG/DL Acetaminophen Level LESS THAN 2.0 MCG/ML Ethyl Alcohol Level 53 MG/DL Lactic Acid Level 6.1 mmol/L Blood Gas Puncture Site LT BRACHIAL Blood Gas Patient Temperature 98.6 Blood Gas HCO3 18 mmol/L Blood Gas Base Excess -6.2 mmol/L Blood Gas Oxygen Saturation 93 % Arterial Blood pH 7.35 Arterial Blood Partial 35 mmHg Pressure CO2 Arterial Blood Partial 102 mmHG Pressure O2 Arterial Blood Oxygen Content 17.6 Vol % Arterial Blood 4.2 % Carboxyhemoglobin Arterial Blood Methemoglobin 0.7 % Blood Gas Hemoglobin 13.4 G/DL Blood Gas Inspired Oxygen 21 % Urine Opiates Screen NEG Urine Barbiturates Screen NEG Urine Amphetamines Screen NEG Urine Benzodiazepines Screen NEG Urine Cocaine Screen NEG Urine Cannabinoids Screen POS Test 10/01/16 10/01/16 10/02/16 18:00 19:39 04:08 Nasal Screen MRSA (PCR) MRSA NOT DETECTED Sodium Level 141 MEQ/L 144 MEQ/L Potassium Level 3.5 MEQ/L 3.6 MEQ/L Chloride Level 107 MEQ/L 110 MEQ/L Carbon Dioxide Level 28.6 MEQ/L 26.9 MEQ/L Anion Gap 5 MEQ/L 7 MEQ/L Blood Urea Nitrogen 7 MG/DL 7 MG/DL Creatinine 0.88 MG/DL 0.89 MG/DL Estimat Glomerular Filtration 118 ML/MIN 117 ML/MIN Rate Random Glucose 82 MG/DL 79 MG/DL Lactic Acid Level 1.2 mmol/L Calcium Level 8.0 MG/DL 8.1 MG/DL White Blood Count 5.2 TH/MM3 Red Blood Count 4.59 MIL/MM3 Hemoglobin 13.2 GM/DL Hematocrit 38.9 % Mean Corpuscular Volume 84.8 FL Mean Corpuscular Hemoglobin 28.8 PG Mean Corpuscular Hemoglobin 34.0 % Concent Red Cell Distribution Width 13.9 % Platelet Count 168 TH/MM3 Mean Platelet Volume 9.1 FL Neutrophils (%) (Auto) 52.2 % Lymphocytes (%) (Auto) 34.8 % Monocytes (%) (Auto) 11.4 % Eosinophils (%) (Auto) 1.3 % Basophils (%) (Auto) 0.3 % Neutrophils # (Auto) 2.7 TH/MM3 Lymphocytes # (Auto) 1.8 TH/MM3 Monocytes # (Auto) 0.6 TH/MM3 Eosinophils # (Auto) 0.1 TH/MM3 Basophils # (Auto) 0.0 TH/MM3 CBC Comment DIFF FINAL Differential Comment Phosphorus Level 2.9 MG/DL Magnesium Level 2.2 MG/DL Total Bilirubin 0.4 MG/DL Aspartate Amino Transf 53 U/L (AST/SGOT) Alanine Aminotransferase 31 U/L (ALT/SGPT) Alkaline Phosphatase 50 U/L Total Protein 5.8 GM/DL Albumin 3.1 GM/DL Imaging Last Impressions Head CT 10/01/16 0000 Signed Impressions: Service Date/Time: Saturday, October 01, 2016 15:44 - CONCLUSION: Negative trauma study. Deandre Lorenzo MD Cervical Spine CT 10/01/16 0000 Signed Impressions: Service Date/Time: Saturday, October 01, 2016 15:46 - CONCLUSION: No acute cervical spine abnormality is identified. Len Tabor MD Objective Remarks GENERAL: Patient is 35 yo lying in bed in NAD SKIN: Warm and dry. HEAD: Normocephalic. EYES: No scleral icterus. No injection or drainage. NECK: Supple, trachea midline. No JVD or lymphadenopathy. CARDIOVASCULAR: Regular rate and rhythm without murmurs, gallops, or rubs. RESPIRATORY: Breath sounds equal bilaterally. No accessory muscle use. GASTROINTESTINAL: Abdomen soft, non-tender, nondistended. MUSCULOSKELETAL: No cyanosis, or edema. Neuro: Awake and alert. A/P Assessment and Plan 1. AMS- resolved 2. Status post a suicide attempt. 3. EtOH intoxication. 4. Anion gap metabolic acidosis.. resolved 5. Lactic acidemia...resolved 6. Elevated CKs. 7. History of bipolar disorder. 8. Bronchial asthma. 9 Elevated AST Plan Neuro: Monitor neuro status, on Ativan 1 mg IV q. 4 hours p.r.n. for agitation. Monitor for signs of DTs. UDS+ + cannabinoids Continue thiamine, multivitamins and folic acid. CT brain: negative for acute intracranial abnormalities. psych is consulted. Pulm: Oxygen p.r.n. to maintain sats above 92%. Bronchodilators on a p.r.n. basis CV: Monitor HR and BP and maintain MAP > 65 mmHg. Patient received 3 liters of crystalloid in the ED. Lactic acid cleared. On D5NS@75ml/hr : Monitor renal function Is and Os and electrolyte replacement as needed. GI: Monitor LFT's, start PO diet ID:. Monitor for signs of infections(fever and WBC)panculture if spikes a fever. Endo: Sliding scale insulin with Accu-Cheks if needed for glycemic control. Heme: Monitor CBC. GI prophylaxis with Protonix 40 mg IV daily and DVT prophylaxis with SCDs and heparin subcu. Will sign off and transfer care to [facility] Level 3 Stephanie Hathaway MD October 02, 2016 10:01
[2016-10-02] MEDS: QUEtiapine FUMARATE 25 MG TAB PO SCH ×2 (13:00→20:16)
--- NOTE | 2016-10-02 13:04 | PD.CONS ---
Provisional Diagnosis Admission Date October 01, 2016 at 16:01 [place] I. Adjustment disorder with depressed mood, alcohol induced mood disorder, alcohol and cannabis use disorder [place] II. deferred [place] III. No significant medical history [place] IV. under arrest [place] V. 55 History of Present Illness Service Psychiatry Consult Requested By Primary Care Physician Unknown HPI The patient is a 35-year-old AA man, domiciled with grandmother and , unemployed, with psychiatric history of alcohol induced mood disorder, alcohol, cocaine and cannabis use disorder, previously wright acted due to substance related problems, seen in [facility] by me in May 2016, previous suicidal attempts, history of incarcerations, no significant medical history, was brought in from the emergency room with history of suicide attempt by hanging himself from the ceiling with a rope. His and child found him soon after the attempt. As per the police and the paramedics couldn't have been hanging for more than a minute. Police was called and they cut him loose. He immediately started to get agitated and combative. He ran out into the street and that's when paramedics arrived and together with the police but in the ambulance. As per the paramedics he was constantly chanting biblical verses in the ambulance on his right here and was trying to grab anything he could find in the back of the ambulance and put it in his mouth. He received 4 mg of Ativan on route in an attempt to calm him down. 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 Patient says that he is under arrest because he has been accused of raping his daughter. He says that he doesn't want to live, that he wants to right now. Patient says that the reason he was to is because this accusation is very serious and "even though is not true" her has several witnesses against him. Patient is oppositional, irritable, refusing to continue with psychiatric assessment. He continues repeating I want to be , I want to be , and is constantly crying. Patient is oriented 3, no attention deficit, no agitation or aggressive behavior at this moment. Patient does not seem to be paranoid or delusional. He denies homicidal ideation, he denies visual and auditory hallucinations. Patient reports daily use of marijuana and alcohol, occasionally cocaine. Review of Systems Constitutional: DENIES: Diaphoretic episodes, Fatigue, Fever, Weight gain, Weight loss, Chills, Dizziness, Change in appetite, Night Sweats Endocrine: DENIES: Heat/cold intolerance, Polydipsia, Polyuria, Polyphagia Eyes: DENIES: Blurred vision, Diplopia, Eye inflammation, Eye pain, Vision loss , Photosensitivity, Double Vision Ears, nose, mouth, throat: DENIES: Tinnitus, Hearing loss, Vertigo, Nasal discharge, Oral lesions, Throat pain, Hoarseness, Ear Pain, Running Nose, Epistaxis, Sinus Pain, Toothache, Odynophagia Respiratory: DENIES: Apneas, Cough, Snoring, Wheezing, Hemoptysis, Sputum production, Shortness of breath Cardiovascular: DENIES: Chest pain, Palpitations, Syncope, Dyspnea on Exertion , PND, Lower Extremity Edema, Orthopnea, Claudication Gastrointestinal: DENIES: Abdominal pain, Black stools, Bloody stools, Constipation, Diarrhea, Nausea, Vomiting, Difficulty Swallowing, Anorexia Genitourinary: DENIES: Sexual dysfunction, Urinary frequency, Urinary incontinence, Urgency, Hematuria, Dysuria, Nocturia, Penile Discharge, Testicular Pain, Testicular Swelling Musculoskeletal: DENIES: Joint pain, Muscle aches, Stiffness, Joint Swelling, Back pain, Neck pain Integumentary: DENIES: Abnormal pigmentation, Nail changes, Pruritus, Rash Hematologic/lymphatic: DENIES: Bruising, Lymphadenopathy Immunologic/allergic: DENIES: Eczema, Urticaria Neurologic: DENIES: Abnormal gait, Headache, Localized weakness, Paresthesias, Seizures, Speech Problems, Tremor, Poor Balance Psychiatric: COMPLAINS OF: Depression, DENIES: Anxiety, Confusion, Mood changes, Hallucinations, Agitation, Homicidal Ideation, Delusions Past Family Social History Coded Allergies: No Known Allergies (Verified , 10/01/16) Discontinued Reported Medications Naproxen 250 Mg [id number] Mg PO TID #60 TAB Ref 0 05/14/16 Methocarbamol (Robaxin)750 Mg [id number] Mg PO TID Ref 0 05/14/16 Current Medications Medications (Trade) Dose Ordered Sig/Brittnee Route Start Time Stop Time Status Last Admin (Protonix Inj) 40 mg DAILY IV 10/01/16 16:00 10/02/16 08:43 Miscellaneous Information 1 [id number] XX 10/01/16 16:00 (Chlorhexidine 2% Cloth) 3 pack Taper DAILY@04 TOP 10/02/16 04:00 09/28/17 03:59 Chlorhexidine Gluconate 3 pack 3 pack UNSCH PRN TOP 10/01/16 16:00 (D5W-NS 1000 ml Inj) 1,000 ml @ 75 mls/hr [id number] IV 10/01/16 16:00 10/02/16 05:20 (Vitamin B1) 100 mg DAILY PO 10/01/16 17:00 10/02/16 08:42 (Folate) 1 mg DAILY PO 10/01/16 17:00 10/02/16 08:42 (Ativan Inj) 1 mg Q4H PRN IV PUSH 10/01/16 16:15 (Theragran) 1 tab DAILY PO 10/01/16 17:00 10/02/16 08:43 (Heparin Inj) 5,000 units Q12HR SQ 10/01/16 21:00 10/02/16 08:43 (D50w (Vial) Inj) 50 ml UNSCH PRN IV 10/01/16 17:00 (Glucagon Inj) 1 mg UNSCH PRN OTHER 10/01/16 17:00 Family History Patient denies psychiatric family history Social History Patient was born and raised in [place], he lives with his grandmother and in [place], he has 3 kids, he is unemployed, he has level of education is 11th grade Patient's Strengths (min. 2) Under observation Physical Exam On physical examination, no EPS, no psychomotor agitation or retardation, no tremors, Vital Signs Vital Signs Date Time Temp Pulse Resp B/P Pulse Ox O2 Delivery O2 Flow Rate FiO2 10/02/16 10:01 59 19 136/68 100 10/02/16 08:00 97.8 10/01/16 17:00 Room Air I/O 10/01/16 10/01/16 10/01/16 07:59 15:59 23:59 Intake Total 373 ml Output Total 0 ml Balance 373 ml Lab Results BAL is a 53, toxicology positive for cannabis Mental Status Examination Appearance man, in [facility], fair hygiene, age appearing, poorly cooperative, oppositional, irritable, tearful Speech: Hesitant Orientation: x3 Memory: Unremarkable Thought Process: Goal Directed, Linear Thought Content: Unremarkable Language Reticent, Fund of Knowledge Unable to be assess due to the lack of cooperation Hallucination Type: None Attention and Concentration: Good Suicidal Ideation: Yes Previous Suicide Attempts: Yes Homicidal Ideation: No Previous Homicide Attempts: No Judgment: Poor Affect: Irritable Mood: Angry, Sad Motor Activity: Normal gait Assessment & Plan Problem List: (1) Substance induced mood disorder Assessment & Plan: On psychiatric evaluation patient reports suicidal ideation with a plan of hanging himself. Patient seems to be very determined and is very persistent about killing himself. He is poorly cooperative with the evaluation, irritable, oppositional, continuously crying. Patient says that he was arrested due to charges of abuse and sexually the daughter of his . Patient says that he was absolutely fine yesterday "before everything happened" . Patient has psychiatric history of cocaine, alcohol and cannabis use disorder , but he doesn't have a solid history of major psychiatric problems. Since alcohol level was 53 on the ER and patient was positive for cannabinoids is very possible that suicidal attempt could be exacerbated by substance intoxication. Antisocial and manipulative behavior has to be carefully rule out , since patient has history of incarcerations and since he just became suicidal in the context of criminal accusations. More longitudinal observation and collateral information will be needed in order to complete a psychiatric assessment for this case. I would not suggest a psychiatric admission in [place] since we don't have a forensic psychiatric unit. He most probably will have to be transferred to [facility]. Extensive support, motivation psycho education provided. I would order Seroquel 50 one twice a day to help the patient to come down. Haldol 5 mg IM every 8 hours when necessary aggressive behavior. ICD Code: F19.94 Assessment & Plan Estimated LOS: Enrique Samano MD October 02, 2016 13:04
[2016-10-03] VITALS (14 sets, daily range): BP systolic 127–156; BP diastolic 71–91; PULSE 49–65; RESP 14–22; TEMP 98.6–98.9; O2SAT 97–100
[2016-10-03] MEDS: RESP: ALBUTEROL 2.5 MG/IPRATROPIUM 0.5 MG NEB (SCH) INH ×3 (03:27→16:00)
[2016-10-03] MEDS: CHLORHEXIDINE GLUCONATE 2 % 1 PACK (2 CLOTHS) TOP SCH (04:00)
[2016-10-03 04:29] LABS: AUTOMATED NEUTROPHIL # 3.1 TH/MM3 (1.8-7.7); BASOPHIL % 0.4 % (0.0-2.0); EOSINOPHIL # 0.1 TH/MM3 (0-0.4); EOSINOPHIL % 1.3 % (0.0-4.0); HEMATOCRIT 40.4 % (39.0-51.0); HEMO FLAGS DIFF FINAL; LYMPHOCYTE # 2.5 TH/MM3 (1.0-4.8); MEAN CELL VOLUME 85.1 FL (80.0-100.0); MEAN CORPUSCULAR HEMOGLOBIN 28.4 PG (27.0-34.0); MEAN CORPUSCULAR HGB CONC 33.4 % (32.0-36.0); MONO % 9.2 % (0.0-8.0); NEUT % 50.1 % (16.0-70.0); PLATELET COUNT 164 TH/MM3 (150-450); RED BLOOD COUNT 4.75 MIL/MM3 (4.50-5.90); WHITE BLOOD COUNT 6.3 TH/MM3 (4.0-11.0)
[2016-10-03 04:57] LABS: ANION GAP 9 MEQ/L (5-15); AST (GOT) 53 U/L (15-37); BICARBONATE 26.2 MEQ/L (21.0-32.0); BLOOD UREA NITROGEN 5 MG/DL (7-18); CHLORIDE 106 MEQ/L (98-107); GLOMERULAR FILTRATION RATE 136 ML/MIN (>89); POTASSIUM 3.3 MEQ/L (3.5-5.1); SODIUM (NA) 141 MEQ/L (136-145)
[2016-10-03 04:59] LABS: ALKALINE PHOSPHATASE 53 U/L (45-117); ALT (GPT) 37 U/L (12-78); TOTAL BILIRUBIN ADULT 0.4 MG/DL (0.2-1.0)
[2016-10-03] MEDS: DEXT 5%-NACL 0.9% 1000 ML INJ 1,000 ML IV SCH (08:00)
[2016-10-03] MEDS: THIAMINE HCL 100 MG TAB PO SCH (08:15)
[2016-10-03] MEDS: QUEtiapine FUMARATE 25 MG TAB PO SCH (08:15)
[2016-10-03] MEDS: HEPARIN SODIUM - SQ 10,000 UNITS/ML VIAL SQ SCH (08:15)
[2016-10-03] MEDS: MULTIVITAMIN TAB PO SCH (08:15)
[2016-10-03] MEDS: FOLIC ACID 1 MG TAB PO SCH (08:15)
[2016-10-03] MEDS: PANTOPRAZOLE SODIUM 40 MG VIAL IV SCH (08:16)
[2016-10-03] MEDS ORDERED: ACETAMINOPHEN 325 MG TAB PO ONE (08:45)
--- NOTE | 2016-10-03 12:08 | HHI.PR ---
Objective Vitals Vital Signs Date Time Temp Pulse Resp B/P Pulse Ox O2 Delivery O2 Flow Rate FiO2 10/03/16 10:00 56 10/03/16 09:31 99 21 10/03/16 08:00 57 10/03/16 08:00 98.9 57 19 143/86 100 10/03/16 06:00 65 10/03/16 04:00 98.8 55 16 156/89 100 10/03/16 04:00 55 10/03/16 02:00 52 10/03/16 00:00 98.6 49 14 141/89 97 10/03/16 00:00 49 10/02/16 22:00 51 10/02/16 20:00 98.0 54 17 121/76 100 10/02/16 20:00 54 10/02/16 18:00 58 10/02/16 16:00 59 28 169/90 100 10/02/16 16:00 59 10/02/16 15:05 75 26 124/83 10/02/16 14:00 52 25 142/84 100 10/02/16 14:00 52 10/02/16 13:00 56 17 143/72 99 I/O 10/02/16 10/02/16 10/02/16 10/03/16 10/03/16 10/03/16 07:00 15:00 23:00 07:00 15:00 23:00 Intake Total 456 ml 491 ml 266 ml 471 ml Output Total 450 ml 500 ml 500 ml Balance 6 ml -9 ml 266 ml -29 ml Intake Oral 120 ml IV Total 456 ml 371 ml 266 ml 471 ml Output Urine Total 450 ml 500 ml 500 ml # Bowel Movements 0 0 Result Diagram: 10/03/1631210/03/16312 Dagoberto Bey MD October 03, 2016 12:08
[2016-10-03] MEDS ORDERED: POTASSIUM CHLORIDE 10 MEQ CONTROLLED RELEASE TAB PO ONE (12:15)
[2016-10-03] MEDS ORDERED: amLODIPine BESYLATE 5 MG TAB PO SCH (13:00)
--- NOTE | 2016-10-03 13:02 | HHI.PYPN ---
Subjective Remarks Patient was seen today for psychiatric reevaluation, patient was found eating his lunch, having fun with officers, he says that he feels much better today, patient clarifies that he doesn't want to kill himself and he would prefer to go to face his legal issues and then come back to look for psychiatric help. Patient denies suicidal and homicidal ideation, he denies visual and auditory hallucinations. Patient is oriented 3, no attention deficit, no fluctuation of consciousness. Patient has been compliant. Patient expresses a lot of concern about his medical problems and about been prescribed with Seroquel to take with him. Review of Systems Constitutional: DENIES: Diaphoretic episodes, Fatigue, Fever, Weight gain, Weight loss, Chills, Dizziness, Change in appetite, Night Sweats Endocrine: DENIES: Heat/cold intolerance, Polydipsia, Polyuria, Polyphagia Eyes: DENIES: Blurred vision, Diplopia, Eye inflammation, Eye pain, Vision loss , Photosensitivity, Double Vision Ears, nose, mouth, throat: DENIES: Tinnitus, Hearing loss, Vertigo, Nasal discharge, Oral lesions, Throat pain, Hoarseness, Ear Pain, Running Nose, Epistaxis, Sinus Pain, Toothache, Odynophagia Respiratory: DENIES: Apneas, Cough, Snoring, Wheezing, Hemoptysis, Sputum production, Shortness of breath Cardiovascular: DENIES: Chest pain, Palpitations, Syncope, Dyspnea on Exertion , PND, Lower Extremity Edema, Orthopnea, Claudication Gastrointestinal: DENIES: Abdominal pain, Black stools, Bloody stools, Constipation, Diarrhea, Nausea, Vomiting, Difficulty Swallowing, Anorexia Genitourinary: DENIES: Sexual dysfunction, Urinary frequency, Urinary incontinence, Urgency, Hematuria, Dysuria, Nocturia, Penile Discharge, Testicular Pain, Testicular Swelling Musculoskeletal: DENIES: Joint pain, Muscle aches, Stiffness, Joint Swelling, Back pain, Neck pain Integumentary: DENIES: Abnormal pigmentation, Nail changes, Pruritus, Rash Hematologic/lymphatic: DENIES: Bruising, Lymphadenopathy Immunologic/allergic: DENIES: Eczema, Urticaria Neurologic: DENIES: Abnormal gait, Headache, Localized weakness, Paresthesias, Seizures, Speech Problems, Tremor, Poor Balance Psychiatric: DENIES: Anxiety, Confusion, Mood changes, Depression, Hallucinations, Agitation, Suicidal Ideation, Homicidal Ideation, Delusions Objective Alert: Yes Marceline: Person, Place, Date, Situation Mood: Calm Affect: Appropriate Memory Intact: Immediate, Recent, Remote Hallucinations: Other (he denies) Delusions: No Delusion Type: Other (none observed) Suicidal: Ideation (no SI) Homicidal: Ideation (no HI) Insight/Judgment Improved Labs Test 10/03/16 03:13 White Blood Count 6.3 TH/MM3 Red Blood Count 4.75 MIL/MM3 Hemoglobin 13.5 GM/DL Hematocrit 40.4 % Mean Corpuscular Volume 85.1 FL Mean Corpuscular Hemoglobin 28.4 PG Mean Corpuscular Hemoglobin 33.4 % Concent Red Cell Distribution Width 14.0 % Platelet Count 164 TH/MM3 Mean Platelet Volume 9.7 FL Neutrophils (%) (Auto) 50.1 % Lymphocytes (%) (Auto) 39.0 % Monocytes (%) (Auto) 9.2 % Eosinophils (%) (Auto) 1.3 % Basophils (%) (Auto) 0.4 % Neutrophils # (Auto) 3.1 TH/MM3 Lymphocytes # (Auto) 2.5 TH/MM3 Monocytes # (Auto) 0.6 TH/MM3 Eosinophils # (Auto) 0.1 TH/MM3 Basophils # (Auto) 0.0 TH/MM3 CBC Comment DIFF FINAL Differential Comment Sodium Level 141 MEQ/L Potassium Level 3.3 MEQ/L Chloride Level 106 MEQ/L Carbon Dioxide Level 26.2 MEQ/L Anion Gap 9 MEQ/L Blood Urea Nitrogen 5 MG/DL Creatinine 0.78 MG/DL Estimat Glomerular Filtration 136 ML/MIN Rate Random Glucose 71 MG/DL Calcium Level 8.5 MG/DL Total Bilirubin 0.4 MG/DL Aspartate Amino Transf 53 U/L (AST/SGOT) Alanine Aminotransferase 37 U/L (ALT/SGPT) Alkaline Phosphatase 53 U/L Total Protein 6.1 GM/DL Albumin 3.2 GM/DL Vitals/IOs Vital Signs Date Time Temp Pulse Resp B/P Pulse Ox O2 Delivery O2 Flow Rate FiO2 10/03/16 10:00 56 10/03/16 09:31 99 21 10/03/16 08:00 98.9 19 143/86 10/01/16 17:00 Room Air Intake and Output 10/02/16 10/02/16 10/03/16 08:00 16:00 00:00 Intake Total 456 ml 491 ml 266 ml Output Total 450 ml 500 ml Balance 6 ml -9 ml 266 ml Assessment & Plan Problem List: (1) Substance induced mood disorder Assessment & Plan: On psychiatric evaluation today the patient does not present any evidence of subjective or objective depression, anxiety, merritt or psychosis. Patient denies suicidal and homicidal ideation, he denies visual and auditory hallucinations. Patient is logical, coherent and relevant. Future oriented, concerning about his health issues. Patient clarifies that yesterday he was overwhelmed and frustrated when he attempted to commit suicide. He says that he was also under the effect or substances and was not thinking clearly. He is my opinion also that there was also some elements of conscious simulation and malingering with secondary gain of avoiding any legal responsibilities. He does not meet criteria for psychiatric admission. Patient carries a permanent high risk of suicidality and poor impulsive behavior due to his personality/character structure with a lot of cluster B traits, but also due to permanent use of substances and previous history of suicide attempts. Extensive support, motivation psycho education. Patient would be discharged back to police custody with suicidal watch. Duong act will be lifted ICD Code: F19.94 Assessment & Plan Estimated LOS: days Justification for Cont. Inpt. Patient does not meet criteria for psychiatric admission at this moment Enrique Welch MD October 03, 2016 13:02
--- NOTE | 2016-10-03 16:28 | HHI.PR ---
Subjective Remarks deferred entry - patient seen at 12:05 pm Patient was c/o headache earlier, resolved after tylenol administration denies cp/sob denies nausea, vomiting, abdominal pain bp slightly elevated good oxygen saturation Patient states that he does not have any suicidal ideations and yesterday he was a little foggy and under the influence of alcohol. Objective Vitals Vital Signs Date Time Temp Pulse Resp B/P Pulse Ox O2 Delivery O2 Flow Rate FiO2 10/03/16 13:00 57 16 137/71 98 10/03/16 13:00 57 10/03/16 12:01 53 10/03/16 12:01 53 16 152/85 100 10/03/16 12:00 52 10/03/16 12:00 98.9 52 15 100 10/03/16 10:00 56 10/03/16 09:31 99 21 10/03/16 08:00 57 10/03/16 08:00 98.9 57 19 143/86 100 10/03/16 06:00 65 10/03/16 04:00 98.8 55 16 156/89 100 10/03/16 04:00 55 10/03/16 02:00 52 10/03/16 00:00 98.6 49 14 141/89 97 10/03/16 00:00 49 10/02/16 22:00 51 10/02/16 20:00 98.0 54 17 121/76 100 10/02/16 20:00 54 10/02/16 18:00 58 I/O 10/02/16 10/02/16 10/02/16 10/03/16 10/03/16 10/03/16 07:00 15:00 23:00 07:00 15:00 23:00 Intake Total 456 ml 491 ml 266 ml 471 ml Output Total 450 ml 500 ml 500 ml Balance 6 ml -9 ml 266 ml -29 ml Intake Oral 120 ml IV Total 456 ml 371 ml 266 ml 471 ml Output Urine Total 450 ml 500 ml 500 ml # Bowel Movements 0 0 Result Diagram: 10/03/1631210/03/16312 Imaging Last Impressions Head CT 10/01/16 0000 Signed Impressions: Service Date/Time: Saturday, October 01, 2016 15:44 - CONCLUSION: Negative trauma study. Deandre Lorenzo MD Cervical Spine CT 10/01/16 0000 Signed Impressions: Service Date/Time: Saturday, October 01, 2016 15:46 - CONCLUSION: No acute cervical spine abnormality is identified. Len Tabor MD Objective Remarks GENERAL: Patient is 35 yo lying in bed in NAD SKIN: Warm and dry. HEAD: Normocephalic. EYES: No scleral icterus. No injection or drainage. NECK: Supple, trachea midline. No JVD or lymphadenopathy. CARDIOVASCULAR: Regular rate and rhythm without murmurs, gallops, or rubs. RESPIRATORY: Breath sounds equal bilaterally. No accessory muscle use. GASTROINTESTINAL: Abdomen soft, non-tender, nondistended. MUSCULOSKELETAL: No cyanosis, or edema. Neuro: Awake and alert. Procedures none Medications and IVs Current Medications Medications (Trade) Dose Ordered Sig/Brittnee Route Start Time Stop Time Status Last Admin (Protonix Inj) 40 mg DAILY IV 10/01/16 16:00 10/03/16 08:16 Miscellaneous Information 1 [id number] XX 10/01/16 16:00 10/01/16 16:00 (Chlorhexidine 2% Cloth) 3 pack Taper DAILY@04 TOP 10/02/16 04:00 09/28/17 03:59 Chlorhexidine Gluconate 3 pack 3 pack UNSCH PRN TOP 10/01/16 16:00 (D5W-NS 1000 ml Inj) 1,000 ml @ 75 mls/hr [id number] IV 10/01/16 16:00 10/02/16 18:40 (Vitamin B1) 100 mg DAILY PO 10/01/16 17:00 10/03/16 08:15 (Folate) 1 mg DAILY PO 10/01/16 17:00 10/03/16 08:15 (Ativan Inj) 1 mg Q4H PRN IV PUSH 10/01/16 16:15 (Theragran) 1 tab DAILY PO 10/01/16 17:00 10/03/16 08:15 (Heparin Inj) 5,000 units Q12HR SQ 10/01/16 21:00 10/03/16 08:15 (D50w (Vial) Inj) 50 ml UNSCH PRN IV 10/01/16 17:00 (Glucagon Inj) 1 mg UNSCH PRN OTHER 10/01/16 17:00 (SEROquel) 50 mg BID PO 10/02/16 13:00 10/03/16 08:15 (Norvasc) 5 mg DAILY PO 10/03/16 13:00 10/03/16 13:11 Urinary Catheter: No Vascular Central Line Catheter: No A/P Problem List: (1) Suicide attempt by hanging ICD Code: T71.162A Status: Acute Plan: The patient was admitted to the intensive care unit and given IV fluids and support with oxygen. Patient was initially placed in the Duong act which has been relieved by psychiatry. (2) Lactic acidosis ICD Code: E87.2 Status: Resolved Plan: Resolved after IV fluid administration. Likely secondary to dehydration. (3) Suicidal ideation ICD Code: R45.851 Status: Resolved Plan: Patient currently denied any suicidal ideation at this moment. Management as per psychiatry. Continue Seroquel. (4) Metabolic acidosis with increased anion gap and accumulation of organic acids ICD Code: E87.2 Status: Resolved Plan: Due to alcohol and dehydration. (5) Alcohol intoxication ICD Code: F10.929 Status: Resolved Plan: Patient presented with a alcohol level of 53. Continue thiamine and folic acid. (6) Bronchial asthma ICD Code: J45.909 Status: Chronic Plan: Seems to be stable. Continue to exercise. (7) HTN (hypertension) ICD Code: I10 Status: Acute Plan: Started blood pressure noted in the 150s. I will start the patient amlodipine 5 mg by mouth daily. Continue to monitor vital signs. (8) Hypokalemia ICD Code: E87.6 Status: Acute Plan: Replace orally, will check a BMP at 3 PM. (9) Encephalopathy ICD Code: G93.40 Status: Resolved Plan: Is a combination of toxic metabolic encephalopathy. Patient with alcohol intoxication. Encephalopathy has resolved after supportive therapy with IV fluids, thiamine and folic acid. Discharge Planning Discharge under police custody if BP controlled and potassium normal. Problem Qualifiers (1) Suicide attempt by hanging: Qualified Code: T71.162A - Suicide attempt by hanging, initial encounter (2) Alcohol intoxication: Qualified Code: F10.920 - Alcohol intoxication, uncomplicated (3) Bronchial asthma: Qualified Code: J45.909 - Uncomplicated asthma, unspecified asthma severity (4) HTN (hypertension): Qualified Code: I10 - Essential hypertension Dagoberto Bey MD October 03, 2016 16:28
[2016-10-03 16:41] LABS: BICARBONATE 28.6 MEQ/L (21.0-32.0); POTASSIUM 3.8 MEQ/L (3.5-5.1)
[2016-10-03] MEDS ORDERED: AMLO5 PO (17:29)
[2016-10-03] MEDS ORDERED: QUET1TAB7 PO (17:29)
--- NOTE | 2016-10-03 17:30 | HHI.DCPOC ---
Discharge Care Plan Diagnosis: (1) Suicide attempt by hanging (2) Metabolic acidosis with increased anion gap and accumulation of organic acids (3) Suicidal ideation (4) HTN (hypertension) (5) Encephalopathy (6) Bronchial asthma (7) Alcohol intoxication (8) Lactic acidosis (9) Hypokalemia (10) Substance induced mood disorder (11) Psychosis Goals to Promote Your Health * To prevent worsening of your condition and complications * To maintain your health at the optimal level Directions to Meet Your Goals Take your medications as prescribed Follow your dietary instruction Follow activity as directed Keep your appointments as scheduled Take your immunizations and boosters as scheduled If your symptoms worsen call your PCP, if no PCP go to Urgent Care Center or Emergency Room Smoking is Dangerous to Your Health. Avoid second hand smoke Call the 24-hour hour crisis hotline for domestic abuse at Dagoberto Bey MD October 03, 2016 17:30
--- NOTE | 2016-10-03 17:31 | HHI.DS ---
Discharge Summary Admission Date October 01, 2016 at 16:01 Discharge Date: October 03, 2016 Admitting Diagnosis attempted hanging, lactic acidosis, metabolic acidosis with increase (1) Suicide attempt by hanging ICD Code: T71.162A Diagnosis: Principal (2) Lactic acidosis ICD Code: E87.2 Diagnosis: Principal (3) Suicidal ideation ICD Code: R45.851 Diagnosis: Principal (4) Metabolic acidosis with increased anion gap and accumulation of organic acids ICD Code: E87.2 Diagnosis: Principal (5) Alcohol intoxication ICD Code: F10.929 Diagnosis: Principal (6) Bronchial asthma ICD Code: J45.909 Diagnosis: Principal (7) HTN (hypertension) ICD Code: I10 Diagnosis: Secondary (8) Hypokalemia ICD Code: E87.6 Diagnosis: Principal (9) Encephalopathy ICD Code: G93.40 Diagnosis: Principal Procedures none Brief History - From Admission The patient is a 35-year-old male with past medical history of bronchial asthma, bipolar disorder who presented to [facility] ED with a history of suicide attempt by hanging himself from the ceiling with a rope. His and child found him soon after the attempt and upon arrival of the police and paramedics, they cut him loose and he immediately started to get agitated and combative. He was trying to grab anything he could find in the ambulance and put it in his mouth. The patient received Ativan 4 mg IV en route. The patient has a warrant to be arrested. On arrival to the ER he was hypertensive and tachycardiac. As per family through the [employer] he has been trying to kill himself for the past one week. The CT scan of the brain was obtained which showed no acute intracranial abnormality. In addition, the patient has cervical spine CT which was unremarkable. His laboratory data significant for anion gap metabolic acidosis and lactic acidemia with lactic acid level of 6.1. His renal function was normal. Alcohol level measured at 53. A urine drug screen is pending. In the ER the patient received 3 liters of crystalloids total and about to receive 2 amps of sodium bicarb. ABG was performed on room air which showed a pH of 7.35, CO2 35, pAO2 102, bicarb 18, sats 93%. History was obtained from reviewing medical records. CBC/BMP: 10/03/16 0313 10/03/16 1543 Significant Findings Laboratory Tests Test 10/01/16 10/01/16 10/01/16 10/01/16 13:50 14:45 15:36 16:30 Monocytes (%) (Auto) 8.5 % (0.0-8.0) Carbon Dioxide Level 14.7 MEQ/L (21.0-32.0) Anion Gap 21 MEQ/L (5-15) Estimat Glomerular Filtration 83 ML/MIN (>89) Rate Total Creatine Kinase 482 U/L (39-308) Acetaminophen Level LESS THAN 2.0 MCG/ML (10.0-30.0) Ethyl Alcohol Level 53 MG/DL (0-5) Lactic Acid Level 6.1 mmol/L (0.4-2.0) Blood Gas HCO3 18 mmol/L (22-26) Blood Gas Base Excess -6.2 mmol/L (-2-2) Arterial Blood pH 7.35 (7.380-7.420) Arterial Blood Partial 35 mmHg (38-42) Pressure CO2 Arterial Blood 4.2 % (0-4) Carboxyhemoglobin Urine Cannabinoids Screen POS (NEG) Test 10/01/16 10/02/16 10/03/16 10/03/16 19:39 04:08 03:13 15:43 Calcium Level 8.0 MG/DL 8.1 MG/DL 8.2 MG/DL (8.5-10.1) (8.5-10.1) (8.5-10.1) Hematocrit 38.9 % (39.0-51.0) Monocytes (%) (Auto) 11.4 % 9.2 % (0.0-8.0) (0.0-8.0) Chloride Level 110 MEQ/L (98-107) Aspartate Amino Transf 53 U/L (15-37) 53 U/L (15-37) (AST/SGOT) Total Protein 5.8 GM/DL 6.1 GM/DL (6.4-8.2) (6.4-8.2) Albumin 3.1 GM/DL 3.2 GM/DL (3.4-5.0) (3.4-5.0) Potassium Level 3.3 MEQ/L (3.5-5.1) Blood Urea Nitrogen 5 MG/DL (7-18) 4 MG/DL (7-18) Random Glucose 71 MG/DL (74-106) Imaging Last Impressions Head CT 10/01/16 0000 Signed Impressions: Service Date/Time: Saturday, October 01, 2016 15:44 - CONCLUSION: Negative trauma study. Deandre Lroenzo MD Cervical Spine CT 10/01/16 0000 Signed Impressions: Service Date/Time: Saturday, October 01, 2016 15:46 - CONCLUSION: No acute cervical spine abnormality is identified. Len Tabor MD PE at Discharge GENERAL: Patient is 35 yo lying in bed in NAD SKIN: Warm and dry. HEAD: Normocephalic. EYES: No scleral icterus. No injection or drainage. NECK: Supple, trachea midline. No JVD or lymphadenopathy. CARDIOVASCULAR: Regular rate and rhythm without murmurs, gallops, or rubs. RESPIRATORY: Breath sounds equal bilaterally. No accessory muscle use. GASTROINTESTINAL: Abdomen soft, non-tender, nondistended. MUSCULOSKELETAL: No cyanosis, or edema. Neuro: Awake and alert. Pt update on day of discharge Patient is awake and laert. Denies dizziness, nausea, vomiting, cough. Vital signs stable. Hospital Course (1) Suicide attempt by hanging The patient was admitted to the intensive care unit and given IV fluids and support with oxygen. Patient was initially placed in the Duong act which has been relieved by psychiatry. (2) Lactic acidosis Resolved after IV fluid administration. Likely secondary to dehydration. (3) Suicidal ideation Patient currently denied any suicidal ideation at this moment. Management as per psychiatry. Continue Seroquel. (4) Metabolic acidosis with increased anion gap and accumulation of organic acids Due to alcohol and dehydration. (5) Alcohol intoxication Plan: Patient presented with a alcohol level of 53. Continue thiamine and folic acid. (6) Bronchial asthma Remained stable during hospital stay. (7) HTN (hypertension) blood pressure noted in the 150s. Started on amlodipine 5 mg daily with posterior improvement of bp. Vital signs monitored. (8) Hypokalemia Replaced orally,BMP rechecked later on that same day prior to DC. (9) Encephalopathy Is a combination of toxic metabolic encephalopathy. Patient with alcohol intoxication. Encephalopathy has resolved after supportive therapy with IV fluids, thiamine and folic acid. Pt Condition on Discharge: Stable Discharge Disposition: Dis to Court Law [employer] Discharge Time: <= 30 minutes Discharge Instructions DIET: Follow Instructions for: Heart Healthy Diet Activities you can perform: Regular-No Restrictions New Medications: Amlodipine (Norvasc) 5 Mg Tab 5 MG PO DAILY Blood Pressure Management #31 TAB Quetiapine (Quetiapine) 25 Mg Tab 50 MG PO BID behavior control #62 TAB Dagoberto Bey MD October 03, 2016 17:31
== END 2016-10-03 18:50 | DRG 913 ==
LOC: NEPC 13:14 → NEDA 16:01 → HIMW 17:45
PROVIDERS: ADMIT Hospitalist; ATTEND Hospitalist
DX: T14.91 Suicide attempt (principal); G92 Toxic encephalopathy; E87.2 Acidosis; Z78.1 Physical restraint status; F10.14 Alcohol abuse with alcohol-induced mood disorder; X83.8XXA Intentional self-harm by other specified means, initial encounter; I10 Essential (primary) hypertension; R00.0 Tachycardia, unspecified; J45.909 Unspecified asthma, uncomplicated; F10.129 Alcohol abuse with intoxication, unspecified; F12.90 Cannabis use, unspecified, uncomplicated; F17.200 Nicotine dependence, unspecified, uncomplicated; F14.90 Cocaine use, unspecified, uncomplicated; F31.9 Bipolar disorder, unspecified; F43.21 Adjustment disorder with depressed mood; Y90.2 Blood alcohol level of 40-59 mg/100 ml; Z76.5 Malingerer [conscious simulation]; E86.0 Dehydration; E87.6 Hypokalemia; Z91.5 Personal history of self-harm
CPT/HCPCS: 36600; 70450; 72125; 80048; 80053; 80307; 82550; 82552; 82805; 83605; 83735; 84100; 85025; 87641; 94640; 94664; 96372; C9113; J1200; J1630; J1644; J2060; J7030; J7042